=== PATIENT | male | born 1950 | race Caucasian/White ===

== ENCOUNTER 2018-05-13 20:01 | Emergency (ER) | payer OTHER ==
[2018-05-13] MEDS ORDERED: AMOX/CLAV 875 MG/125 MG TABLET PO STA (20:43)
[2018-05-13] MEDS ORDERED: TETANUS/DIPHTHERIA/PERTUSSIS 0.5 ML SYRINGE IM ONE (20:43)
[2018-05-13 20:58] VITALS: BP 126/100
--- NOTE | 2018-05-13 21:06 | ED Physician Documentation ---
PD HPI UPPER EXT INJURY - Stated complaint Stated Complaint: DOG BITE - Chief complaint Chief Complaint: Laceration - History obtained from History obtained from: Patient - History of Present Illness Location: Right Type of injury: Other (dog bite) Where injury occurred: Street Timing - onset: Today Similar symptoms before: Has not had sx before Recently seen: Not recently seen - Additonal information Additional information: Patient is a 68 year old male who is presenting to the emergency department for a dog bite. Patient states that he was going for a hike when a dog came out from some bushes and bit the patient on the arm that had a brace on it. Patient was able to talk to the product owner and the dog was up to date on its shot. Patient is not up to date on his tetanus. Review of Systems Ten Systems: 10 systems reviewed and negative PD PAST MEDICAL HISTORY - Past Medical History Past Medical History: Yes HEENT: Glaucoma Musculoskeletal: Osteoarthritis - Past Surgical History Past Surgical History: Yes - Present Medications Home Medications: Ambulatory Orders Medication Instructions Recorded Confirmed Amox/Clav 875/125 [Augmentin] 1 each PO Q12H #14 tablet 05/13/18 Bimatoprost 0.01% Ophth Dops 05/13/18 [Lumigan 0.01% Ophth Drops] Dorzolamide 2% Ophth Drops 05/13/18 [Trusopt 2% Ophth Drops] Gabapentin 05/13/18 Naproxen Sodium [Aleve] 05/13/18 05/13/18 Nortriptyline [Pamelor] 05/13/18 - Allergies Allergies/Adverse Reactions: Allergies Allergy/AdvReac Type Severity Reaction Status Date / Time No Known Drug Allergies Allergy Verified 05/13/18 20:08 - Social History Does the pt smoke?: No Smoking Status: Never smoker Does the pt drink ETOH?: Yes Does the pt have substance abuse?: No - Immunizations Immunizations are current?: Yes - POLST Patient has POLST: No PD ED PE NORMAL - Vitals Vital signs reviewed: Yes - General General: Alert and oriented X 3 - HEENT HEENT: Atraumatic - Cardiac Cardiac: RRR - Neuro Neuro: Alert and oriented X 3 Eye Opening: Spontaneous PD ED PE EXPANDED - Extremities Extremities: Right forearm (two small puncture wounds of right forearm, no active bleeding) Results - Vitals Vitals: Vital Signs - 24 hr 05/13/18 05/13/18 20:06 20:58 Temperature 36.8 C 36.3 C L Heart Rate 88 78 Respiratory 20 16 Rate Blood Pressure 132/72 H 126/100 H O2 Saturation 97 98 Oxygen O2 Source Room air PD MEDICAL DECISION MAKING - ED course Complexity details: reviewed old records, re-evaluated patient, considered differential, d/w patient, d/w family ED course: Patient was seen and examined at bedside. patient's wound was cleaned. patient was treated with tetanus and augmentin. police were notified about the bite. Patient was otherwise well appearing and the dog was able to be monitored so no rabies vaccination was given. Patient was given detailed discharge and follow up instructions and patient was stable for discharge with outpatient follow up. - Sepsis Event Vital Signs: Vital Signs - 24 hr 05/13/18 05/13/18 20:06 20:58 Temperature 36.8 C 36.3 C L Heart Rate 88 78 Respiratory 20 16 Rate Blood Pressure 132/72 H 126/100 H O2 Saturation 97 98 Oxygen O2 Source Room air Departure - Departure Disposition: 01 Home, Self Care Clinical Impression: Dog bite of arm Condition: Good Instructions: ED Bite Dog Follow-Up: Tobi Mccracken MD [Primary Care Provider] - Prescriptions: Amox/Clav 875/125 [Augmentin] 1 each PO Q12H #14 tablet Comments: You have been started on augmentin for your dog bite. you will take it twice a day for the next week. you should keep it clean and dry. you can take motrin or tylenol as needed for pain. you should follow up with your doctor as needed. you may return to the emergency department at any time for new, worsening or uncontrollable symptoms. Discharge Date/Time: 05/13/18 21:09
== END 2018-05-13 21:09 | disposition home or self-care (01) ==
LOC: ED 20:01
DX: S51.831A Puncture wound without foreign body of right forearm, initial encounter (principal); W54.0XXA Bitten by dog, initial encounter; Y93.01 Activity, walking, marching and hiking; Y92.410 Unspecified street and highway as the place of occurrence of the external cause; Z23 Encounter for immunization
CPT/HCPCS: 90471; 90715; 99283; A9270

== ENCOUNTER 2019-10-07 15:06 | Outpatient (CLI) | payer OTHER ==
--- NOTE | 2019-10-08 09:59 | XRAY Report ---
Reason: UNILATERAL PRIMARY OSTEOARTHRITIS, RIGHT KNEE Procedure Date: 10/07/2019 Accession Number: [id number] / [id number] Procedure: XRS - Knee 3 View RT CPT Code: Final Report FULL RESULT: EXAM: RIGHT KNEE RADIOGRAPHY EXAM DATE: 10/07/2019 03:29 PM. CLINICAL HISTORY: Unilateral primary osteoarthritis, right knee. Right knee pain. COMPARISON: None. TECHNIQUE: 3 views. FINDINGS: Bones: Normal. No fractures or bone lesions. Joints: Moderate to severe tricompartmental degenerative changes with joint space loss and osteophytosis. Chondral calcinosis also present. Suprapatellar effusion. No subluxations. Soft Tissues: Normal. No soft tissue swelling. IMPRESSION: Moderate to severe tricompartmental right knee degenerative changes coupled with chondrocalcinosis. RADIA
== END 2019-10-07 15:07 | disposition home or self-care (01) ==
LOC: DI.S 15:06
PROVIDERS: ATTEND Internal Medicine
DX: M17.11 Unilateral primary osteoarthritis, right knee (principal); M11.261 Other chondrocalcinosis, right knee

== ENCOUNTER 2020-09-01 12:06 | Outpatient (CLI) | payer OTHER ==
--- NOTE | 2020-09-01 17:04 | CT Report ---
PROCEDURE: LUMBAR SPINE WO INDICATIONS: SCIATICA TECHNIQUE: Noncontrast 3 mm thick sections acquired from the T12 level to the sacrum. Sagittal and coronal refo rmats were constructed. For radiation dose reduction, the following was used: automated exposure co ntrol, adjustment of mA and/or kV according to patient size. COMPARISON: None. FINDINGS: Image quality: Excellent. Bones: There is trace L4-L5 anterolisthesis. No acute vertebral body compression fractures. No susp icious lytic or blastic bony lesions. No pars defects. T12-L1: Slight loss of disc height. Mild, diffuse disc bulge. No central stenosis. No neural foramin al narrowing. No neural compression. L1-L2: Disc height is normal. Mild, diffuse disc bulge. Mild narrowing of the central canal. Mild bilateral neural foraminal narrowing. No neural compression. L2-L3: Slight loss of disc height. Mild, diffuse disc bulge. Mild bilateral facet hypertrophy. Mod erate narrowing of the central canal. Moderate bilateral neural foraminal narrowing. No neural compre ssion. L3-L4: Slight loss of disc height. Mild, diffuse disc bulge. Mild bilateral facet hypertrophy. Mild ligament flavum hypertrophy. Moderate to severe narrowing of the central canal. Moderate bilateral n eural foraminal narrowing. No definite neural compression. L4-L5: Slight loss of disc height. Mild to moderate diffuse disc bulge. Severe facet hypertrophy. Mod erate ligamentum flavum hypertrophy. Severe narrowing of the central canal with probable compression of the nerve roots of the cauda equina. Moderate right and moderate to severe left neural foraminal n arrowing with slight compression of the exiting left L4 nerve root. L5-S1: Disc height is normal. Vacuum disc phenomenon. Mild, diffuse disc bulge. Mild right and modera te left facet hypertrophy. No central stenosis. Mild right and moderate left neural foraminal narrowi ng. No neural compression. Soft tissues: No retroperitoneal masses or hematomas. Visualized aorta is normal in caliber. Scatte red atherosclerotic calcifications are noted in the Marnie abdominal and pelvic vasculature. IMPRESSION: 1. Multilevel degenerative disease. 2. Multilevel facet of artery. 3. Severe L4-L5 central canal narrowing with probable compression of the nerve roots of the cauda equ leonor. 4. Moderate to severe left L4-L5 neural foraminal narrowing with slight compression of the exiting le ft L4 nerve root. Reviewed by: Ana Newman MD, PhD on 09/01/2020 5:02 PM PST Approved by: Ana Newman MD, PhD on 09/01/2020 5:02 PM PST Station ID: [id number]
== END 2020-09-01 12:07 | disposition home or self-care (01) ==
LOC: DI 12:06
PROVIDERS: ATTEND Nurse Practitioner Family
DX: M51.36 Other intervertebral disc degeneration, lumbar region (principal); M48.061 Spinal stenosis, lumbar region without neurogenic claudication; M47.817 Spondylosis without myelopathy or radiculopathy, lumbosacral region; M47.816 Spondylosis without myelopathy or radiculopathy, lumbar region
CPT/HCPCS: 72131

== ENCOUNTER 2020-10-03 08:34 | Outpatient (CLI) | payer OTHER ==
[2020-10-03] MEDS ORDERED: GADOBUTROL 10 MMOL/10 ML VIAL ONE (09:38)
[2020-10-03] MEDS ORDERED: GADOBUTROL 10 MMOL/10 ML VIAL IVP ONE (11:43)
--- NOTE | 2020-10-03 16:03 | MRI Report ---
PROCEDURE: Lumbar Spine W/WO INDICATIONS: COMPRESSION OF CAUDA EQUINA CONTRAST: IV CONTRAST: Gadavist ml: 9 TECHNIQUE: Noncontrast sagittal T1 spin echo and T2 fast spin echo, sagittal STIR, axial T1 and T2 fast spin ech o through the lumbar spine. In cases with scoliosis, additional coronal T2 fast spin echo may be per formed. After the administration of contrast, sagittal and axial T1 spin echo with fat saturation th rough the lumbar spine. COMPARISON: 09/01/2020 CT lumbar spine FINDINGS: Image quality: Excellent. Degenerative straightening of usual lumbar lordosis. Degenerative anterolisthesis of L4 on L5 measuri ng approximately 3 mm. Otherwise normal alignment. No evidence of pars defect. Vertebral body heights maintained. There is no suspicious focal marrow signal abnormality. There is mild discogenic marrow edema at the opposing endplates from the L1-L2 through L4-L5 levels. There is also bulky facet osteoarthropathy fr om L3-L4 through L5 and S1 with associated periarticular bone marrow and soft tissue edema. These fin dings are worst on the left at the L4-L5 level, where the edema extends into the pedicles and is pron ounced surrounding the facets within the soft tissues. There is corresponding enhancement in this reg ion. Small facet effusions are present at the L4-L5 and L5-S1 levels. There is subchondral cystic latanya nge in association with the facet osteoarthropathy at each level. Normal position and appearance of the conus. Prevertebral and paraspinous soft tissues are otherwise normal. There is no additional focus of abnormal enhancement. Limited views of the included retroperi toneal visceral structures demonstrate no acute abnormality. T12-L1: No spinal canal or neural foraminal stenosis. L1-L2: No spinal canal or neural foraminal stenosis. L2-L3: Diffuse disc bulge flattens and indents the ventral thecal sac. Disc material displaces the descending L3 nerve roots within both subarticular zones. Facet hypertrophy and buckling of the liga mentum flavum further contributes to overall moderate spinal canal stenosis. Foraminal components of the disc bulge contribute to mild bilateral neural foraminal stenosis. L3-L4: Diffuse disc bulge and superimposed broad-based posterior disc protrusion flatten and indent the ventral thecal sac. Disc material displaces the descending L4 nerve roots within both subarticul ar zones. Facet hypertrophy and buckling of the ligamentum flavum further contributes to overall mode rate spinal canal stenosis. Foraminal components of the disc bulge and facet hypertrophy combine to p roduce moderate bilateral neural foraminal stenosis. L4-L5: Severe spinal canal stenosis due to accommodation of diffuse disc bulge, bulky facet hypertr ophy, and buckling of the ligamentum flavum. The thecal sac is narrowed to a maximum axial dimension of 5 x 5 mm (series 701 image 13). There is suspected nerve root impingement/compression at this leve l. These factors combine to produce mild right and moderate left neural foraminal stenosis. L5-S1: Disc material displaces the descending S1 nerve roots within both subarticular zones. No mynor ral foraminal stenosis. IMPRESSION: Severe spinal canal stenosis with suspected nerve root compression/impingement at the L4-L5 level. Acute enhancing facet osteoarthropathy at L4-L5 on the left. Additional facet osteoarthropathy from L3-L4 through L5 and S1 bilaterally, contributing significantl y to the varying degrees of spinal canal and neural foraminal stenosis at these levels. Reviewed by: Troy Block MD on 10/03/2020 4:01 PM PST Approved by: Troy Block MD on 10/03/2020 4:01 PM PST Station ID: [id number]
== END 2020-10-03 08:35 | disposition home or self-care (01) ==
LOC: DI 08:34
PROVIDERS: ATTEND Nurse Practitioner Family
DX: M48.062 Spinal stenosis, lumbar region with neurogenic claudication (principal); M47.816 Spondylosis without myelopathy or radiculopathy, lumbar region
CPT/HCPCS: 72158; A9585

== ENCOUNTER 2021-08-06 10:22 | Outpatient (CLI) | payer OTHER | END 2021-08-06 10:23 | disposition home or self-care (01) | LOC: DI 10:22 | PROVIDERS: ATTEND Nurse Practitioner Family | DX: R01.1 Cardiac murmur, unspecified (principal); I44.4 Left anterior fascicular block; I48.91 Unspecified atrial fibrillation; I51.7 Cardiomegaly; I35.0 Nonrheumatic aortic (valve) stenosis; I70.0 Atherosclerosis of aorta; I25.10 Atherosclerotic heart disease of native coronary artery without angina pectoris; I77.810 Thoracic aortic ectasia; I87.8 Other specified disorders of veins | CPT/HCPCS: 93306 ==

== ENCOUNTER 2022-02-26 15:08 | Outpatient (CLI) | payer OTHER ==
--- NOTE | 2022-02-26 16:25 | XRAY Report ---
PROCEDURE: Cervical Spine 2 View INDICATIONS: NECK PAIN TECHNIQUE: 3 view(s) of the cervical spine were acquired. COMPARISON: None. FINDINGS: Bones: There is anterior cervical fusion hardware between C6 and C7. There is bony ankylosis between C5 and C6. Severe disc height loss at C3-4 with mild endplate spur formation. This results in straig htening of the normal cervical lordosis. No fractures or dislocations to the T1 level. The lateral m asses of C1 appear intact on the odontoid view. No suspicious bony lesions. Soft tissues: No prevertebral soft tissue swelling. Mild bilateral carotid bulb calcification. IMPRESSION: 1. Straightening of the cervical lordosis. 2. Osseous and hardware fusion from C5 through C7 appears intact. 3. Disc and endplate degeneration at C3-4 without subluxation. Reviewed by: Elena Mcintosh MD on 02/26/2022 4:24 PM PDT Approved by: Elena Mcintosh MD on 02/26/2022 4:24 PM PDT Station ID: [id number]
--- NOTE | 2022-02-26 17:15 | XRAY Report ---
PROCEDURE: Shoulder 2 View BILAT INDICATIONS: BILATERAL SHOULDER JOINT PAIN TECHNIQUE: 3 views of the shoulder were acquired. COMPARISON: None. FINDINGS: Bones: No fractures or dislocations. No suspicious bony lesions. Severe degenerative changes are pr esent at the left acromioclavicular joint. There is elevation of the left clavicle with respect to th e acromion suggesting acromioclavicular joint separation. Heterotopic ossification is also present wi thin the soft tissues. A soft tissue calcification is present inferior to the right femoral head suggesting an intra-articul ar loose body or adjacent heterotopic ossification. Soft tissues: No suspicious soft tissue calcifications. IMPRESSION: 1. 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 2. Questionable right intra-articular body versus heterotopic ossification of the adjacent soft tissu es. Reviewed by: Sandra Borges MD on 02/26/2022 5:13 PM PDT Approved by: Sandra Borges MD on 02/26/2022 5:13 PM PDT Station ID: [id number]
== END 2022-02-26 15:09 | disposition home or self-care (01) ==
LOC: DI.S 15:08
PROVIDERS: ATTEND Nurse Practitioner Family
DX: M25.511 Pain in right shoulder (principal); R93.6 Abnormal findings on diagnostic imaging of limbs; R93.89 Abnormal findings on diagnostic imaging of other specified body structures; M19.012 Primary osteoarthritis, left shoulder; M47.812 Spondylosis without myelopathy or radiculopathy, cervical region; M50.31 Other cervical disc degeneration, high cervical region; Z98.1 Arthrodesis status

== ENCOUNTER 2022-12-04 03:46 | Outpatient (CLI) | payer SELFPAY | END 2022-12-04 17:20 | disposition left against medical advice (07) | LOC: EMS 03:46 | DX: S10.81XA Abrasion of other specified part of neck, initial encounter (principal); T71.191A Asphyxiation due to mechanical threat to breathing due to other causes, accidental, initial encounter; Y93.89 Activity, other specified; Y92.009 Unspecified place in unspecified non-institutional (private) residence as the place of occurrence of the external cause ==

== ENCOUNTER 2023-10-15 10:24 | Emergency (ER) | payer MEDICARE ==
--- NOTE | 2023-10-15 14:36 | ED Physician Documentation ---
History of Present Illness - Stated complaint Stated Complaint: RT HAND LAC - Chief complaint Chief Complaint: Laceration - History obtained from History obtained from: Patient - History of Present Illness Timing: How many weeks ago (1) Pain level max: 0 Pain level now: 0 - Additonal information Additional information: 73-year-old male with laceration 1 week ago to the right index and middle fingers. He states that the middle finger wound appears healed but the index finger when he moves it is slightly open still. There is no bleeding. No swelling. No tenderness. No redness. No numbness or tingling. TD UTD Review of Systems Constitutional: denies: Fever, Chills PD PAST MEDICAL HISTORY - Past Medical History Past Medical History: Yes HEENT: Glaucoma Musculoskeletal: Osteoarthritis - Past Surgical History Past Surgical History: Yes - Present Medications Home Medications: Ambulatory Orders Medication Instructions Recorded Confirmed Amox/Clav 875/125 [Augmentin] 1 each PO Q12H #14 tablet 05/13/18 Bimatoprost 0.01% Ophth Dops 05/13/18 [Lumigan 0.01% Ophth Drops] Dorzolamide 2% Ophth Drops 05/13/18 [Trusopt 2% Ophth Drops] Gabapentin 05/13/18 Naproxen Sodium [Aleve] 05/13/18 05/13/18 Nortriptyline [Pamelor] 05/13/18 - Allergies Allergies/Adverse Reactions: Allergies Allergy/AdvReac Type Severity Reaction Status Date / Time No Known Drug Allergies Allergy Verified 10/15/23 10:34 - Social History Does the pt smoke?: No Smoking Status: Never smoker Does the pt drink ETOH?: Yes Does the pt have substance abuse?: No - Immunizations Immunizations are current?: Yes - POLST Patient has POLST: No PD ED PE NORMAL - Vitals Vital signs reviewed: Yes - General General: Alert and oriented X 3, No acute distress - Derm Derm: Warm and dry - Extremities Extremities: Other - Neuro Neuro: Alert and oriented X 3 - Free text exam Free text exam: R hand Small curved laceration just past the PIP joint on the dorsum of the right index finger. There is also a small linear laceration on the right third digit. This wound appears healed. The index finger laceration does open slightly when he bends his finger, but there is no bleeding. Neurovascular intact. Brisk cap refill. No signs of infection. Results - Vitals Vitals: Vital Signs - 24 hr 10/15/23 10:31 Temperature 36.0 C L Heart Rate 70 Respiratory 16 Rate Blood Pressure 140/71 H O2 Saturation 100 Oxygen O2 Source Room air PD Medical Decision Making - ED course Complexity details: considered differential, d/w patient ED course: 73-year-old male with a laceration to the right index finger and right middle finger that are approximately 1 week old. They are not open. They are not bleeding. They appear to be healing well by secondary intention. No evidence of infection. Able to move the finger well. Patient was given a splint to wear intermittently if he needs to help protect the wound while it continues to heal. Tetanus up-to-date. Patient counseled regarding signs and symptoms for which I believe and urgent re-evaluation would be necessary. Patient with good understanding of and agreement to plan and is comfortable going home at this time This document was made in part using voice recognition software. While efforts are made to proofread this document, sound alike and grammatical errors may occur. Departure - Departure Disposition: 01 Home, Self Care Clinical Impression: Visit for wound check Condition: Good Instructions: ED Wound Care Follow-Up: ALBER CROWELL ARNP [Primary Care Provider] - Within 1 week Comments: You can intermittently wear the splint to help with comfort. But you do need to start moving your finger to help prevent any stiffness in the joint. As we discussed there is no suturing to be done today on the wound, will heal from the inside out. Please follow-up with your doctor for further care. Please return if you notice redness, swelling or drainage from the wound. Forms: PCP List
[2023-10-15 15:07] VITALS: BP 146/79; O2SAT 98
== END 2023-10-15 15:04 | disposition home or self-care (01) ==
LOC: ED 10:24
DX: S61.210A Laceration without foreign body of right index finger without damage to nail, initial encounter (principal); W45.8XXA Other foreign body or object entering through skin, initial encounter
CPT/HCPCS: 99282

== ENCOUNTER 2024-06-07 08:00 | Outpatient (CLI) | payer MEDICARE ==
[2024-06-07 21:08] LABS: INFLUENZA A- RESP PCR PANEL NOT DETECTED; INFLUENZA B - RESP PCR PANEL NOT DETECTED; RSV- RESP PCR PANEL NOT DETECTED; SARS-CoV-2 -RESP PCR PANEL NOT DETECTED
== END 2024-06-07 23:59 | disposition home or self-care (01) ==
LOC: LAB.S 08:00
PROVIDERS: ATTEND Physician Assistant Medical
DX: B97.89 Other viral agents as the cause of diseases classified elsewhere (principal)
CPT/HCPCS: 87637